=== PATIENT | female | born 1925 | race Caucasian/White ===

== ENCOUNTER 2016-07-01 06:51 | Day surgery (SDC) | payer MEDICARE ==
[~2016-07-01 06:51] MED LIST: ASAB PO; VITAMIN D1000 UNI1 PO
== END 2016-07-01 23:59 | disposition home or self-care (01) ==
LOC: SDC 06:51
PROVIDERS: Orthopaedic Surgery Orthopaedic Surgery of the Spine
PROC: 3E0S3BZ Introduction of Anesthetic Agent into Epidural Space, Percutaneous Approach (ICD-10-PCS; 2016-07-01)
PROC: 3E0S33Z Introduction of Anti-inflammatory into Epidural Space, Percutaneous Approach (ICD-10-PCS; principal; 2016-07-01 06:45)
DX: M48.06 Spinal stenosis, lumbar region (principal); M19.90 Unspecified osteoarthritis, unspecified site; J44.9 Chronic obstructive pulmonary disease, unspecified; K57.92 Diverticulitis of intestine, part unspecified, without perforation or abscess without bleeding; K21.9 Gastro-esophageal reflux disease without esophagitis; Z79.82 Long term (current) use of aspirin; Z90.710 Acquired absence of both cervix and uterus; Z98.41 Cataract extraction status, right eye; Z98.42 Cataract extraction status, left eye; Z87.442 Personal history of urinary calculi; Z90.49 Acquired absence of other specified parts of digestive tract
CPT/HCPCS: J1030; J3010; Q9967